=== PATIENT | male | born 1995 | race Two or more races ===

== ENCOUNTER 2023-08-23 00:12 | Emergency (ER) | payer MEDICAID, OTHER ==
[~2023-08-23] VITALS: Ht 177.8 cm; Wt 81.6 kg
[2023-08-23 00:31] VITALS: BP 128/84; RESP 16; O2SAT 96
[2023-08-23] MEDS: CLINDAMYCIN 900MG IV 50 ML IV ONE (01:00)
[2023-08-23] MEDS: SODIUM CHLORIDE 0.9% 2,000 ML IV ONE (01:00)
[2023-08-23] MEDS ORDERED: PRED20TA2 PO (01:38)
[2023-08-23] MEDS ORDERED: [UNRECOGNIZED DRUG - CODE] MT (01:38)
[2023-08-23] MEDS ORDERED: IBUP-1455 PO (01:38)
[2023-08-23] MEDS ORDERED: CLIN1CAP70 PO (01:38)
[2023-08-23] MEDS: LIDOCAINE VISCOUS 2% 15ML UD PO ONE (02:49)
[2023-08-23] MEDS: IBUPROFEN 800 MG TAB PO ONE (02:49)
[2023-08-23 02:58] VITALS: PULSE 98
[2023-08-23] MEDS: DexAMETHasone SOD PHOS 10MG/1ML VIAL INJ IV ONE (02:59)
== END 2023-08-23 03:48 | disposition home or self-care (01) ==
LOC: ER 00:12
DX: J03.90 Acute tonsillitis, unspecified (principal)
CPT/HCPCS: 93005; 96365; 96366; 96375; 99284; J1100; J3490; J7030

== ENCOUNTER 2024-01-14 17:43 | Emergency (ER) | payer MEDICAID, OTHER ==
[~2024-01-14] VITALS: Ht 177.8 cm; Wt 91.1 kg
[~2024-01-14 17:43] MED LIST: CLIN1CAP70 PO; IBUP-1455 PO; PRED20TA2 PO; [UNRECOGNIZED DRUG - CODE] MT
[2024-01-14 18:21] VITALS: BP 139/76; PULSE 107; RESP 16; TEMP 97.6; O2SAT 99
[2024-01-14] MEDS ORDERED: AUG875T PO (19:39)
[2024-01-14] MEDS ORDERED: IBUP-1456 PO (19:39)
== END 2024-01-14 20:18 | disposition home or self-care (01) ==
LOC: ER 17:46
DX: S81.832A Puncture wound without foreign body, left lower leg, initial encounter (principal); S81.031A Puncture wound without foreign body, right knee, initial encounter; Z79.1 Long term (current) use of non-steroidal anti-inflammatories (NSAID); Z79.52 Long term (current) use of systemic steroids; Z79.899 Other long term (current) drug therapy; W54.0XXA Bitten by dog, initial encounter; Y93.89 Activity, other specified; Y92.89 Other specified places as the place of occurrence of the external cause; Y99.0 Civilian activity done for income or pay
CPT/HCPCS: 73562; 73590